=== PATIENT | male | born 1995 | race Caucasian/White ===

== ENCOUNTER 2020-12-27 14:35 | Emergency (ER) | payer MEDICAID, OTHER ==
[~2020-12-27] VITALS: Ht 182.9 cm; Wt 70.9 kg
[2020-12-27 14:41] VITALS: BP 109/47
== END 2020-12-27 15:24 | disposition home or self-care (01) ==
LOC: ED 15:06
DX: K64.8 Other hemorrhoids (principal)
CPT/HCPCS: 99283